=== PATIENT | female | born 1955 | race Two or more races ===

== ENCOUNTER 2023-12-06 02:14 | Emergency (ER) | payer MEDICARE, OTHER ==
[~2023-12-06] VITALS: Ht 157.5 cm; Wt 84.7 kg
[2023-12-06 05:00] VITALS: BP 196/84; PULSE 77; RESP 18; TEMP 98.6; O2SAT 97
[2023-12-06] MEDS ORDERED: AUG875T PO (06:02)
[2023-12-06] MEDS ORDERED: IBU600T PO (06:02)
== END 2023-12-06 06:11 | disposition home or self-care (01) ==
LOC: ER 02:14
DX: S51.012A Laceration without foreign body of left elbow, initial encounter (principal); S80.02XA Contusion of left knee, initial encounter; Z88.7 Allergy status to serum and vaccine; W01.0XXA Fall on same level from slipping, tripping and stumbling without subsequent striking against object, initial encounter; Y93.89 Activity, other specified; Y92.89 Other specified places as the place of occurrence of the external cause; Y99.8 Other external cause status
CPT/HCPCS: 12002; 73080; 73562